=== PATIENT | male | born 1995 | race African-American/Black ===

== ENCOUNTER 2016-09-11 12:46 | Emergency (ER) | payer OTHER, SELFPAY ==
[2016-09-11] MEDS ORDERED: Ketorolac Tromethamine 60 MG/2 ML VIAL ONE (13:03)
[2016-09-11 13:10] LABS: Bilirubin Negative (Negative); Blood, Urine Negative (Negative); Glucose, Urine (Dipstick) Negative (Negative); Ketone, Urine Negative (Negative); Nitrite Negative (Negative); Protein, Urine (Dipstick) Negative (Neg-Trace); Urobilinogen 0.2 mg/dL (0.2-1.0)
[2016-09-11 13:16] LABS: RBC/HPF 0-3 HPF (0-3)
[2016-09-11 13:19] LABS: Bacteria/HPF Rare-Few HPF (None Seen); Squamous Epithelial 0-3 HPF (0-3); WBC/HPF 0-3 HPF (0-3)
--- NOTE | 2016-09-11 14:06 | ERRECORD ---
[facility] EMERGENCY RECORD HPI FLANK PAIN (13:10 [facility]) CHIEF COMPLAINT: Patient presents for evaluation of flank pain, on the right. HISTORIAN: History provided by patient, 21M presents with complaints of blood in urine and right flank pain. States he has had a kidney stone in the past that felt similar. Describes mild dysuria. Also notes one week of anterior osborne pain that is worse with ambulation. Denies trauma or other injury. Denies foot pain, numbness or tingling. LOCATION MALE: Symptoms are localized, most severe in the right flank. QUALITY: Pain is sharp in nature, described as stabbing. TIME COURSE: Sudden onset of symptoms, There has been no change in the patient's symptoms over time. ASSOCIATED WITH MALE: Associated with hematuria. EXACERBATED BY: Patient's condition exacerbated by urination. RELIEVED BY: Patient's condition relieved by nothing because patient has not tried anything for relief. ROS (13:13 [facility]) CONSTITUTIONAL: Negative constitutional review of systems, Historian denies chills, denies fever. EYES: Negative eye review of systems, Historian denies eye pain, denies eye discharge, denies vision changes. ENT: Negative ears, nose, throat review of systems, Historian denies rhinorrhea, denies sore throat. CARDIOVASCULAR: Negative cardiovascular review of systems, Historian denies chest pain, denies palpitations. RESPIRATORY: Negative respiratory review of systems, Historian denies cough, denies shortness of breath. GI: Negative gastrointestinal review of systems, Historian denies abdominal pain, denies constipation, denies diarrhea, denies nausea, denies vomiting. GENITOURINARY MALE: Historian reports hematuria, right flank pain, hematuria. MUSCULOSKELETAL: Negative musculoskeletal review of systems, Historian denies back pain, denies fall, denies injury, denies neck pain. SKIN: Negative skin review of systems, Historian denies rash, denies skin changes. NEUROLOGIC: Negative neurologic review of systems, Historian denies headache. HEMO/LYMPHATIC: Normal hematologic/lymphatic system review, Historian denies abnormal blood clotting. PAST MEDICAL HISTORY (12:53 BGAR) MEDICAL HISTORY: Past medical history includes history of hypertension, Notes: HEART MURMUR. MALE SURGICAL HISTORY: Surgical history of orthopedic surgery, RIGHT WRIST, LEFT ANKLE. ortho surgery. SOCIAL HISTORY: Patient denies alcohol use, Patient denies drug &a-1R&a+25V*p+0X*d7214C*c202B*c15G*c2P*p-0X&a-25V&a+1R Name: Gabriel Perez : 1995 M21 MedRec: [id number] AcctNum: [id number] Prepared: [facility] Sep 11, 2016 14:08 by Interface Page 1 of 3 pMD [facility] EMERGENCY RECORD use, Patient currently uses tobacco, smokes cigarettes, Patient smokes 1/2 packs per day. KNOWN ALLERGIES No Known Drug Allergies CURRENT MEDICATIONS (12:52 BGAR) Unable to obtain VITAL SIGNS VITAL SIGNS: BP: 134/67, Pulse: 59, Resp: 18, Temp: 98.0 (Oral), Pain: 8, O2 sat: 95 on Room Air, Time: 09/11/2016 12:49. (12:49 BGAR) BP: 123/62, Pulse: 48, Resp: 16, Temp: 98.1, Pain: 0, O2 sat: 98 on RA, Time: 09/11/2016 13:58. (13:58 KMOR) PHYSICAL EXAM (13:13 [facility]) CONSTITUTIONAL: Vital signs reviewed, Patient afebrile, Pulse normal, Blood pressure normal, Respiratory rate normal, Patient appears non toxic, Patient appears pain free, Patient alert and oriented to person, place and time. HEAD: Head exam normal, Head exam included findings of head atraumatic, normocephalic. EYES: Eye exam normal, Eye exam included findings of eyelids normal to inspection, Pupils equally round and reactive to light, Extraocular muscles intact, no nystagmus. ENT: ENT exam normal, Ear exam normal, external ear normal, tympanic membranes normal, no bleeding, Pharynx exam normal, Uvula exam normal, Tonsil exam normal, Mouth exam normal, mucous membranes moist, teeth normal. NECK: Neck exam normal, Neck exam included findings of normal range of motion, Trachea midline, no meningeal signs, no cervical adenopathy, no tenderness. RESPIRATORY CHEST: Respiratory and chest exam normal, Respiratory exam included findings of no respiratory distress, Breath sounds clear. CARDIOVASCULAR: Cardiovascular assessment normal, Cardiovascular exam included findings of heart rate regular rate and rhythm, Heart sounds normal. ABDOMEN MALE: Abdominal exam included findings of abdomen nontender, Bowel sounds normal, no distension, no mass, no pulsatile masses, no peritoneal signs, no rigidity, no guarding, no rebound, Rovsing's sign absent. BACK: Back exam normal, Back exam included findings of normal inspection, range of motion normal, mild tenderness to palpation inferior right ribs. No RLQ tenderness. UPPER EXTREMITY: Upper extremity exam normal, Upper extremity exam included findings of inspection normal, Range of motion normal, Motor strength normal, Sensation intact, Radial pulse normal. LOWER EXTREMITY: Lower extremity exam normal, Lower extremity exam included findings of inspection normal, Range of motion normal, &a-1R&a+25V*p+0X*v5897T*c202B*c15G*c2P*p-0X&a-25V&a+1R Name: Gabriel Perez : 1995 M21 MedRec: [id number] AcctNum: [id number] Prepared: Nickie Sep 11, 2016 14:08 by Interface Page 2 of 3 pMD [facility] EMERGENCY RECORD Motor strength normal, Sensation intact, Posterior tibial pulse normal, Pedal pulse normal, anterior tibialis tenderness and pain with dorsiflexion. NEURO: Neuro exam normal, Neuro exam findings include patient oriented to person, place and time, Speech normal, Gait normal. SKIN: Skin exam normal, Skin exam included findings of skin warm, dry, and normal in color, no rash. PSYCHIATRIC: Psychiatric exam normal, Normal affect. MEDICATION ADMINISTRATION SUMMARY Drug Name: Toradol intramuscular, Dose Ordered: 60 mg, Route: Intramuscular, Status: Given, Time: 13:08 09/11/2016, Detailed record available in Medication Service section. DOCTOR NOTES (13:45 [facility]) TEXT: Patient presented with concern for nephrolithiasis, which was not supported by CT or urinalysis findings. No evidence of UTI/Pyelonephritis causing symptoms, and patient has no risk factors for AAA. Sent urine for GC PCR, and discussed the possibility of STI/STD with the patient, who refused antibiotic treatment and would prefer to wait until lab findings are back. I do not have an exact etiology for symptoms at this time. Findings are possibly atypical appendicitis, which was not seen on Non contrasted CT scan. It is possibly early appendicitis, and instructed the patient to return to the ED if symptoms worsen. possibly musculoskeletal, possibly STI, possibly passed renal stone, but regardless, the patient is stable and pain free, appropriate for discharge home and follow up or return to ED if symptoms worsen. PATIENT STATUS: Patient has improved since arrival to emergency department. PATIENT PLAN: The patient will be discharged, The patient will follow up with primary care physician. DATA REVIEWED: Lab data reviewed, Xray data reviewed. PROBLEM LIST No recorded problems DIAGNOSIS (13:56 [facility]) FINAL: PRIMARY: flank pain. PRESCRIPTION No recorded prescriptions DISPOSITION PATIENT: Disposition Type: Discharge, Disposition: [facility] Patient left the department. (14:01 DAYANA) Hensley: MICHELLE=NOE Judd, Virginia STEWART=MD June, Rob KMOR=NOE Rubio, Anabel &a-1R&a+25V*p+0X*g0800H*c202B*c15G*c2P*p-0X&a-25V&a+1R Name: Gabriel Perez : 1995 M21 MedRec: [id number] AcctNum: [id number] Prepared: Nickie Sep 11, 2016 14:08 by Interface Page 3 of 3 pMD MTDD
--- NOTE | 2016-09-11 14:13 | PICIS ---
[facility] EMERGENCY RECORD TRIAGE (ThuSep 11, 2016 12:51 BGAR) TRIAGE NOTES: Pt reports right flank pain and blood in urine; states it hurts to urinate. (ThuSep 11, 2016 12:51 BGAR) PATIENT: NAME: Gabriel Perez, AGE: 21, GENDER: male, : Sun 1995, TIME OF GREET: ThuSep 11, 2016 12:46, PREFERRED LANGUAGE: Uzbek, ETHNICITY: Not or , ECODE BILLING MAP: [facility], SSN: [id number], Zip Code: [address], KG WEIGHT: 115.67, , , PERSON ID: [id number], PCP: None. (ThuSep 11, 2016 12:51 BGAR) PHONE: , PAYMENT: SJX Self Pay. (12:55) COMPLAINT: Right flank pain; blood in urine. (ThuSep 11, 2016 12:51 BGAR) ADMISSION: URGENCY: 3 Urgent, ADMISSION SOURCE: Home, TRANSPORT: CAR, BED: TRIAGE. (ThuSep 11, 2016 12:51 BGAR) ASSESSMENT: Assessment: pt to er bed 2. pt c/o right flank pain and reports blood tinged urine. (12:53 BGAR) PAIN: Patient complains of pain described as, on a scale 0-10 patient rates pain as 8, Location right flank. (12:53 BGAR) SIRS SCORING: Heart Rate 55-109 (0), Temp range 96.8-101.1 (0), respiratory rate 12-24 (0), Mental Status altered: no (0), Infection or Suspected Infection: No. (12:53 BGAR) TRIAGE SCREENING: Patient denies suicidal ideation, Patient denies presence of domestic violence. (12:53 BGAR) PROVIDERS: TRIAGE NURSE: Virginia Judd RN. (ThuSep 11, 2016 12:51 BGAR) VITAL SIGNS: BP 134/67, Pulse 59, Resp 18, Temp 98.0, (Oral), Pain 8, O2 Sat 95, on Room Air, Time 09/11/2016 12:49. (12:49 BGAR) PREVIOUS VISIT ALLERGIES: No Known Drug Allergies. (ThuSep 11, 2016 12:51 BGAR) No Known Drug Allergies. (12:53 BGAR) KNOWN ALLERGIES No Known Drug Allergies CURRENT MEDICATIONS (12:52 BGAR) Unable to obtain VITAL SIGNS VITAL SIGNS: BP: 134/67, Pulse: 59, Resp: 18, Temp: 98.0 (Oral), Pain: 8, O2 sat: 95 on Room Air, Time: 09/11/2016 12:49. (12:49 BGAR) BP: 123/62, Pulse: 48, Resp: 16, Temp: 98.1, Pain: 0, O2 sat: 98 on RA, Time: 09/11/2016 13:58. (13:58 KMOR) NURSING ASSESSMENT: GENITOURINARY (12:54 BGAR) CONSTITUTIONAL: Patient arrives ambulatory, Gait steady, History obtained from patient, Patient appears, uncomfortable, Patient cooperative, Patient alert, Oriented to person, place and time, Skin warm, Skin dry, Skin normal in color, Mucous membranes &a-1R&a+25V*p+0X*m5617K*c202B*c15G*c2P*p-0X&a-25V&a+1R Name: Gabriel Perez : 1995 M21 MedRec: [id number] AcctNum: [id number] Prepared: ThuSep 11, 2016 14:08 by Interface Page 1 of 7 pMD [facility] EMERGENCY RECORD pink, Mucous membranes moist. PAIN MALE: right flank, on a scale 0-10 patient rates pain as 8. GENITOURINARY MALE: Associated with urinary complaints described as, dysuria, hematuria, patient given urine cup to void, Notes: exam deferred for physician exam. ABDOMEN: Abdomen assessment findings include abdomen symmetrical, Abdomen soft, non-tender, no associated nausea, no associated vomiting. SAFETY: Side rails up, Cart/Stretcher in lowest position, Family at bedside, Call light within reach, Hospital ID band on. NURSING PROCEDURE: DISCHARGE NOTE (13:58 KMOR) DISCHARGE: Patient discharged to home, ambulating without assistance, driving self, accompanied by //partner, Summary of Care printed/ provided, Transition record given to patient, Discharge instructions given to patient, Simple or moderate discharge teaching performed, by NOE Little, Discharge instructions and follow up reviewed with patient. Pt ambulatory to discharge desk., Above person(s) verbalized understanding of discharge instructions and follow-up care. BELONGINGS: Belongings remain with patient, Valuables remain with patient. VITAL SIGNS: BP: 123, / 62, Pulse: 48, Resp: 16, Temp: 98.1, Pain: 0, O2 sat: 98, on: RA, Time: 1355. NURSING PROCEDURE: TRANSPORT TO TESTS (13:17 KMOR) PATIENT IDENTIFIER: Patient actively involved in identification process, Patient's identity verified by patient stating name, Patient's identity verified by patient stating date. TRANSPORT TO TESTS: Transport indicated to facilitate diagnosis, Patient transported to CT scan, via wheelchair, Accompanied by x-ray oscillograph technician. NURSING PROCEDURE: URINE COLLECTION (13:00 KMOR) PATIENT IDENTIFIER: Patient actively involved in identification process, Patient's identity verified by patient stating name, Patient's identity verified by patient stating date. URINE COLLECTION MALE: Urine collected by void, output amount (mL) 100ml, urine yellow in color, and clear, Specimen labeled in the presence of the patient and sent to lab, Specimen obtained for culture labeled in the presence of the patient and sent to lab. ORDER DETAILS Order Name: CT Stone Protocol, Status: Active, Time: 13:00 09/11/2016, User: ISAÍAS, - Ordered for: MD Watkins Jason, - Entered by: MD Watkins Jason - ThuSep 11, 2016 13:00, &a-1R&a+25V*p+0X*f6709G*c202B*c15G*c2P*p-0X&a-25V&a+1R Name: Gabriel Perez : 1995 M21 MedRec: [id number] AcctNum: [id number] Prepared: ThuSep 11, 2016 14:08 by Interface Page 2 of 7 pMD [facility] EMERGENCY RECORD - Quantity: 1, Order Name: GC/Chlamydia Profile by PCR, Status: Active, Time: 13:41 09/11/2016, User: ISAÍAS, - Ordered for: MD Watkins Jason, - Entered by: MD Watkins Jason - Nickie Sep 11, 2016 13:41, - Quantity: 1, Order Name: Urinalysis with Microscopic, Status: Active, Time: 12:59 09/11/2016, User: [facility], - Ordered for: MD Watkins Jason, - Entered by: MD Watkins Jason - [facility] Sep 11, 2016 12:59, - Quantity: 1. MEDICATION ADMINISTRATION SUMMARY Drug Name: Toradol intramuscular, Dose Ordered: 60 mg, Route: Intramuscular, Status: Given, Time: 13:08 09/11/2016, Detailed record available in Medication Service section. MEDICATION SERVICE Toradol intramuscular: Order: Toradol intramuscular (ketorolac tromethamine) - Dose: 60 mg : Intramuscular Ordered by: Rob Watkins MD Entered by: Rob Watkins MD [facility] Sep 11, 2016 13:01 , Acknowledged by: Virginia Judd RN [facility] Sep 11, 2016 13:03 Documented as given by: Anabel Rubio RN [facility] Sep 11, 2016 13:08 Patient, Medication, Dose, Route and Time verified prior to administration. IM medication, Amount given: 60mg, Medication administered to right buttock, Correct patient, time, route, dose and medication confirmed prior to administration, Patient advised of actions and side-effects prior to administration, Allergies confirmed and medications reviewed prior to administration, Patient in position of comfort, Side rails up, Cart in lowest position, Family at bedside. : Follow Up : Response assessment performed, No signs or symptoms of allergic reaction noted, Decreased pain. (13:53 [facility]) HPI FLANK PAIN (13:10 [facility]) CHIEF COMPLAINT: Patient presents for evaluation of flank pain, on the right. HISTORIAN: History provided by patient, 21M presents with complaints of blood in urine and right flank pain. States he has had a kidney stone in the past that felt similar. Describes mild dysuria. Also notes one week of anterior osborne pain that is worse with ambulation. Denies trauma or other injury. Denies foot pain, numbness or tingling. LOCATION MALE: Symptoms are localized, most severe in the right flank. QUALITY: Pain is sharp in nature, described as stabbing. TIME COURSE: Sudden onset of symptoms, There has been no change in the patient's symptoms over time. ASSOCIATED WITH &a-1R&a+25V*p+0X*v8789B*c202B*c15G*c2P*p-0X&a-25V&a+1R Name: Gabriel Perez : 1995 M21 MedRec: [id number] AcctNum: [id number] Prepared: Nickie Sep 11, 2016 14:08 by Interface Page 3 of 7 pMD [facility] EMERGENCY RECORD MALE: Associated with hematuria. EXACERBATED BY: Patient's condition exacerbated by urination. RELIEVED BY: Patient's condition relieved by nothing because patient has not tried anything for relief. ROS (13:13 [facility]) CONSTITUTIONAL: Negative constitutional review of systems, Historian denies chills, denies fever. EYES: Negative eye review of systems, Historian denies eye pain, denies eye discharge, denies vision changes. ENT: Negative ears, nose, throat review of systems, Historian denies rhinorrhea, denies sore throat. CARDIOVASCULAR: Negative cardiovascular review of systems, Historian denies chest pain, denies palpitations. RESPIRATORY: Negative respiratory review of systems, Historian denies cough, denies shortness of breath. GI: Negative gastrointestinal review of systems, Historian denies abdominal pain, denies constipation, denies diarrhea, denies nausea, denies vomiting. GENITOURINARY MALE: Historian reports hematuria, right flank pain, hematuria. MUSCULOSKELETAL: Negative musculoskeletal review of systems, Historian denies back pain, denies fall, denies injury, denies neck pain. SKIN: Negative skin review of systems, Historian denies rash, denies skin changes. NEUROLOGIC: Negative neurologic review of systems, Historian denies headache. HEMO/LYMPHATIC: Normal hematologic/lymphatic system review, Historian denies abnormal blood clotting. PAST MEDICAL HISTORY (12:53 BGAR) MEDICAL HISTORY: Past medical history includes history of hypertension, Notes: HEART MURMUR. MALE SURGICAL HISTORY: Surgical history of orthopedic surgery, RIGHT WRIST, LEFT ANKLE. ortho surgery. SOCIAL HISTORY: Patient denies alcohol use, Patient denies drug use, Patient currently uses tobacco, smokes cigarettes, Patient smokes 1/2 packs per day. PHYSICAL EXAM (13:13 [facility]) CONSTITUTIONAL: Vital signs reviewed, Patient afebrile, Pulse normal, Blood pressure normal, Respiratory rate normal, Patient appears non toxic, Patient appears pain free, Patient alert and oriented to person, place and time. HEAD: Head exam normal, Head exam included findings of head atraumatic, normocephalic. EYES: Eye exam normal, Eye exam included findings of eyelids normal to inspection, Pupils equally round and reactive to light, Extraocular muscles intact, no nystagmus. &a-1R&a+25V*p+0X*u3221O*c202B*c15G*c2P*p-0X&a-25V&a+1R Name: Gabriel Perez : 1995 M21 MedRec: [id number] AcctNum: [id number] Prepared: Nickie Sep 11, 2016 14:08 by Interface Page 4 of 7 pMD [facility] EMERGENCY RECORD ENT: ENT exam normal, Ear exam normal, external ear normal, tympanic membranes normal, no bleeding, Pharynx exam normal, Uvula exam normal, Tonsil exam normal, Mouth exam normal, mucous membranes moist, teeth normal. NECK: Neck exam normal, Neck exam included findings of normal range of motion, Trachea midline, no meningeal signs, no cervical adenopathy, no tenderness. RESPIRATORY CHEST: Respiratory and chest exam normal, Respiratory exam included findings of no respiratory distress, Breath sounds clear. CARDIOVASCULAR: Cardiovascular assessment normal, Cardiovascular exam included findings of heart rate regular rate and rhythm, Heart sounds normal. ABDOMEN MALE: Abdominal exam included findings of abdomen nontender, Bowel sounds normal, no distension, no mass, no pulsatile masses, no peritoneal signs, no rigidity, no guarding, no rebound, Rovsing's sign absent. BACK: Back exam normal, Back exam included findings of normal inspection, range of motion normal, mild tenderness to palpation inferior right ribs. No RLQ tenderness. UPPER EXTREMITY: Upper extremity exam normal, Upper extremity exam included findings of inspection normal, Range of motion normal, Motor strength normal, Sensation intact, Radial pulse normal. LOWER EXTREMITY: Lower extremity exam normal, Lower extremity exam included findings of inspection normal, Range of motion normal, Motor strength normal, Sensation intact, Posterior tibial pulse normal, Pedal pulse normal, anterior tibialis tenderness and pain with dorsiflexion. NEURO: Neuro exam normal, Neuro exam findings include patient oriented to person, place and time, Speech normal, Gait normal. SKIN: Skin exam normal, Skin exam included findings of skin warm, dry, and normal in color, no rash. PSYCHIATRIC: Psychiatric exam normal, Normal affect. EVENTS TRANSFER: Triage to Emergency Triage. (ThuSep 11, 2016 12:51 BGAR) Emergency Triage to Emergency Room -02. (13:01 BGAR) Removed from Emergency Emergency Room -02. (14:01 KMOR) [facility] (13:45 [facility] TEXT: Patient presented with concern for nephrolithiasis, which was not supported by CT or urinalysis findings. No evidence of UTI/Pyelonephritis causing symptoms, and patient has no risk factors for AAA. Sent urine for GC PCR, and discussed the possibility of STI/STD with the patient, who refused antibiotic treatment and would prefer to wait until lab findings are back. I do not have an exact etiology for symptoms at this time. Findings are possibly atypical appendicitis, which was not seen on Non contrasted CT scan. It is possibly early appendicitis, and instructed the patient to return to &a-1R&a+25V*p+0X*h6312J*c202B*c15G*c2P*p-0X&a-25V&a+1R Name: Gabriel Perez : 1995 M21 MedRec: [id number] AcctNum: [id number] Prepared: ThuSep 11, 2016 14:08 by Interface Page 5 of 7 pMD [facility] EMERGENCY RECORD the ED if symptoms worsen. possibly musculoskeletal, possibly STI, possibly passed renal stone, but regardless, the patient is stable and pain free, appropriate for discharge home and follow up or return to ED if symptoms worsen. PATIENT STATUS: Patient has improved since arrival to emergency department. PATIENT PLAN: The patient will be discharged, The patient will follow up with primary care physician. DATA REVIEWED: Lab data reviewed, Xray data reviewed. PROBLEM LIST No recorded problems [facility]IS (13[facility] FINAL: PRIMARY: flank pain. DISPOSITION PATIENT: Disposition Type: Discharge, Disposition: *Discharge Home. (13:56 [facility]) Patient left the department. (14:01 KMOR) INSTRUCTION (13:57 JJA) DISCHARGE: FLANK PAIN, UNCERTAIN CAUSE. SPECIAL: If it gets worse, come back to the ED. If tests are positive, you will get a call from the lab in the next 24-72 hours. Tylenol/Motrin for pain. PRESCRIPTION No recorded prescriptions IMAGING *DISCHARGE INSTRUCTIONS RECEIPT: Image captured from scanner. (14:03 KMOR) *SUPPLY CHARGE SHEET: Image captured from scanner. (14:04 KMOR) ADMIN DIGITAL SIGNATURE: MD Watkins Jason. (13:57 [facility]) NOE Rubio Krista. (14:05 KMOR) RESULTS (13:45 [facility]) LABORATORY: Urinalysis with Microscopic Collection DT: [facility] Sep 11, 2016 13:07, Color Yellow , Range (Yellow), Clarity Slightly Cloudy , Range (Clear), Specific [place], Urine 1.020 , Range (1.005-1.030), pH, Urine 8.5 , Range (5.0-9.0), Leukocyte Negative , Range (Negative), Nitrite Negative , Range (Negative), Protein, Urine (Dipstick) Negative mg/dL, Range (Neg-Trace), Glucose, Urine (Dipstick) Negative mg/dL, Range (Negative), &a-1R&a+25V*p+0X*w9139W*c202B*c15G*c2P*p-0X&a-25V&a+1R Name: Gabriel Perez : 1995 M21 MedRec: [id number] AcctNum: [id number] Prepared: [facility] Sep 11, 2016 14:08 by Interface Page 6 of 7 pMD [facility] EMERGENCY RECORD Ketone, Urine Negative mg/dL, Range (Negative), Urobilinogen 0.2 mg/dL, Range (0.2-1.0), Bilirubin Negative , Range (Negative), Blood, Urine Negative , Range (Negative), RBC/HPF 0-3 HPF, Range (0-3), WBC/HPF 0-3 HPF, Range (0-3), Squamous Epithelial 0-3 HPF, Range (0-3), Bacteria/HPF Rare-Few HPF, Range (None Seen). Hensley: BGAR=NOE Judd, Virginia [facility]=MD Watkins Jason KMOR=NOE Rubio Krista &a-1R&a+25V*p+0X*v3433G*c202B*c15G*c2P*p-0X&a-25V&a+1R Name: PerezGabriel guy Francine : 1995 M21 MedRec: [id number] AcctNum: [id number] Prepared: Nickie Sep 11, 2016 14:08 by Interface Page 7 of 7 pMD MTDD
--- NOTE | 2016-09-11 14:26 | CT ---
CT ABDOMEN AND PELVIS WITHOUT CONTRAST: Date: 09-11-16 Technique: Spiral CT of the abdomen and pelvis was done for evaluation of right flank pain and jayla turia. Axial slices were acquired then coronal reconstructions were done. FINDINGS: The lung bases are clear. The liver, spleen, pancreas, adrenal glands, gallbladder and abdominal ao rta were unremarkable within the limitations of the noncontrast study. The kidneys showed no measurable renal calculi. At most, there may be a little early calcification in some of the pyramids, but defined calculi were not seen. There was no hydronephrosis. No ureter al dilatation or ureteral calculi were appreciated. There were no signs of calculi at the UVJ or in the urinary bladder. The bowel is nondistended and shows a normal gas pattern. There is no sign of obstruction or inflam matory bowel disease. The appendix appears normal. No free air or free fluid was seen. CT of the pelvis showed no pelvic masses, adenopathy, free fluid, or inflammatory change. The lumba r spine showed no acute findings. IMPRESSION: No acute abdominal or pelvic findings to explain the patient's symptoms. POS: HOME
== END 2016-09-11 13:58 | disposition home or self-care (01) ==
LOC: BURERS 12:46
DX: R10.9 Unspecified abdominal pain (principal); I10 Essential (primary) hypertension; F17.210 Nicotine dependence, cigarettes, uncomplicated
CPT/HCPCS: 74176; 81001; 87491; 87591; 96372; J1885